=== PATIENT | female | born 1980 | race American Indian/Alaskan Native ===

== ENCOUNTER 2021-09-28 06:09 | Emergency (ER) | payer SELFPAY ==
[2021-09-28] MEDS ORDERED: SODIUM CHLORIDE 0.9% 1000 ML 1,000 ML IV ONE (06:58)
[2021-09-28 07:40] LABS: Bilirubin,Urine NEG (Negative); Blood,Urine LG (Negative); Color,Urine Yellow (Yellow); Protein,Urine <15 mg/dL mg/dL (Negative); Urobilinogen,Urine < 2.0 mg/dL (<2.0)
[2021-09-28 07:43] LABS: RBC,Urine < 1.0 /HPF (0.0-6.0); WBC,Urine < 1.0 /HPF (0.0-6.0)
[2021-09-28 07:49] LABS: Amorphous Crystals,Urine Few
[2021-09-28 08:19] LABS: Basophils % (Auto) 0.9 % (0.0-1.8); Eosinophils # (Auto) 0.1 K/mm3 (0.0-0.4); Eosinophils % (Auto) 1.2 % (0.0-4.3); Hemoglobin 12.5 gm/dl (10.1-14.3); Lymphocytes # (Auto) 1.5 K/mm3 (1.2-5.4); Lymphocytes % (Auto) 27.1 % (13.4-35.0); Mean Corpuscular HGB Conc 35 % (30-34); Mean Corpuscular Volume 83 fl (79-97); Monocytes # (Auto) 0.3 K/mm3 (0.0-0.8); Monocytes % (Auto) 5.1 % (0.0-7.3); Platelet Count 167 K/mm3 (140-440); Red Blood Count 4.32 M/mm3 (3.65-5.03); Red Cell Distribution Width 14.2 % (13.2-15.2)
[2021-09-28 08:35] LABS: Alanine Aminotransferase 19 units/L (7-56); Albumin 4.8 g/dL (3.9-5); Blood Urea Nitrogen 9 mg/dL (7-17); Calcium 9.5 mg/dL (8.4-10.2); Hemolysis Index 125
[2021-09-28 08:36] LABS: BUN/Creatinine Ratio 15
--- NOTE | 2021-09-28 08:42 | Ultrasound Report ---
ULTRASOUND PELVIS INDICATION: . TECHNIQUE: Transabdominal and Transvaginal. Duplex Color Doppler used: Yes. COMPARISON: None available FINDINGS: Uterus: Present. Size: 8.6 x 6.3 x 7.3 cm. Endometrial complex: Normal measuring 0.8 cm. Mass lesions: None. Additional findings: None. Right Ovary -- 3.9 x 1.5 x 2.1 CM. Blood flow: Normal. Cyst or mass: 1.6 cm cyst. Left Ovary-- Normal. Blood flow: Normal. Cyst or mass: None. Urinary Bladder: Normal. Free Fluid: None. Additional Findings: Indeterminate lesion at the right adnexa measuring 3.2 x 2.0 x 2.1 cm. This is n ot well evaluated. No visualized gestational sac, pole or yolk sac. IMPRESSION: 1. Negative for intrauterine . 2. Indeterminate complex lesion right adnexa. This could represent ectopic [facility]. Signer Name: Reymundo Moe MD Signed: 09/28/2021 8:37 AM Workstation Name: [email or web address]
--- NOTE | 2021-09-28 08:42 | Ultrasound Report ---
ULTRASOUND PELVIS INDICATION: . TECHNIQUE: Transabdominal and Transvaginal. Duplex Color Doppler used: Yes. COMPARISON: None available FINDINGS: Uterus: Present. Size: 8.6 x 6.3 x 7.3 cm. Endometrial complex: Normal measuring 0.8 cm. Mass lesions: None. Additional findings: None. Right Ovary -- 3.9 x 1.5 x 2.1 CM. Blood flow: Normal. Cyst or mass: 1.6 cm cyst. Left Ovary-- Normal. Blood flow: Normal. Cyst or mass: None. Urinary Bladder: Normal. Free Fluid: None. Additional Findings: Indeterminate lesion at the right adnexa measuring 3.2 x 2.0 x 2.1 cm. This is n ot well evaluated. No visualized gestational sac, pole or yolk sac. IMPRESSION: 1. Negative for intrauterine . 2. Indeterminate complex lesion right adnexa. This could represent ectopic [facility]. Signer Name: Reymundo Moe MD Signed: 09/28/2021 8:37 AM Workstation Name: [email or web address]
--- NOTE | 2021-09-28 09:02 | Emergency Department Report ---
ED HPI - General Chief complaint: Abdominal Pain Stated complaint: ABD PAIN Source: patient Mode of arrival: Ambulatory Limitations: No Limitations - History of Present Illness Initial comments: 40 female 3 G2 A0 present to Ed for abdominal pain x2 weeks . Patient states she started having vaginal bleeding x1day. Patient stated abdominal pain is 9/10. Patient states last menstrual cycle was July 28. Patient states she is current followed by [facility]. She states she is 7 weeks . Denies any past medical history. Denies any fever chills nausea vomiting at present time. Patient is alert and oriented x3. No acute distress noted. No ill appearance noted. MD Complaint: abdominal pain, vaginal bleeding - Related Data Allergies Allergy/AdvReac Type Severity Reaction Status Date / Time No Known Allergies Allergy Verified 09/28/21 06:57 ED Review of Systems ROS: Stated complaint: ABD PAIN Other details as noted in HPI ED Past Medical Hx - Past Medical History Previous Medical History?: No - Surgical History Past Surgical History?: Yes Additional Surgical History: C SECTION X1 - Social History Smoking Status: Never Smoker Substance Use Type: None ED Physical Exam - General Limitations: No Limitations ED Course Vital Signs 09/28/21 09/28/21 09/28/21 06:54 09:04 11:41 Temperature 98.1 F 98.3 F Pulse Rate 51 L 49 L Respiratory 18 16 Rate Blood Pressure 116/72 116/69 [Left] O2 Sat by Pulse 100 100 98 Oximetry ED Medical Decision Making - Lab Data Result diagrams: 09/28/21 07:50 09/28/21 07:50 - EKG Data Rate: bradycardia - Radiology Data [facility] [address] [place] [address] Ultrasound Report Signed Patient: ABRAM GLOVER MR#: [id number] : 1980 Acct:[id number] Age/Sex: 40 / F ADM Date: 09/28/21 Loc: ED Attending Dr: Ordering Physician: CARLIN NERI NP Date of Service: 09/28/21 Procedure(s): US OB transvaginal Accession Number(s): [id number] cc: CARLIN NERI NP ULTRASOUND PELVIS INDICATION: . TECHNIQUE: Transabdominal and Transvaginal. Duplex Color Doppler used: Yes. COMPARISON: None available FINDINGS: Uterus: Present. Size: 8.6 x 6.3 x 7.3 cm. Endometrial complex: Normal measuring 0.8 cm. Mass lesions: None. Additional findings: None. Right Ovary -- 3.9 x 1.5 x 2.1 CM. Blood flow: Normal. Cyst or mass: 1.6 cm cyst. Left Ovary-- Normal. Blood flow: Normal. Cyst or mass: None. Urinary Bladder: Normal. Free Fluid: None. Additional Findings: Indeterminate lesion at the right adnexa measuring 3.2 x 2.0 x 2.1 cm. This is not well evaluated. No visualized gestational sac, pole or yolk sac. IMPRESSION: 1. Negative for intrauterine . 2. Indeterminate complex lesion right adnexa. This could represent ectopic in the appropriate clinical setting. Signer Name: Reymundo Moe MD Signed: 09/28/2021 8:37 AM Workstation Name: [email or web address] Transcribed By: ES Dictated By: Reymundo Moe MD Electronically Authenticated By: Reymundo Moe MD Signed Date/Time: 09/28/2137 DD/ TD/TT: Print Cancel - Medical Decision Making 33-year-old female presents to the ED via EMS with vaginal bleeding and abd pain x1 day . Patient is 6 para 2 A3. Patient states that abdominal pain is a current 5 out of 10. Patient states that vaginal bleeding is mostly when she is wipe. Patient denies any nausea or vomiting or fever at present time . Patient states that she is currently followed by [place]. Patient is alert and oriented x3. No acute distress noted. No ill appearance noted Physical examination is unremarkable. Consulted with Dr. Reymundo MD. Patient has an indeterminant at present time .Patient wished to keep . Patient is to follow-up will [facility] within 24-48 hours to have hCG level redrawn. Patient is sinus bradycardia at [address] segment dis cussed with Dr. Saxena prior to discharge . Rechecked the patient is resting quietly quietly and comfortable and feeling better. I discussed the results of diagnostic study, my clinical impression and the plan for further treatment with the patient. Patient agrees with plan and discharge at this present time. All question addressed. I have given the patient instruction regarding a diagnosis ,expectation ,follow- up and return precaution. I explained to the patient that emergent condition may arise and to return to the ED for new worsen and any new persisting condition. I have explained the importance of following up with the primary care physician or referral physician listed below has instructed. The patient verbalized understanding of discharge instruction. Critical care attestation.: If time is entered above; I have spent that time in minutes in the direct care of this critically ill patient, excluding procedure time. ED Disposition Clinical Impression: Bleeding in early Disposition: 01 HOME / SELF CARE / HOMELESS Is pt being admited?: No Does the pt Need Aspirin: No Condition: Stable Instructions: Vaginal Bleeding During , First Trimester, Abdominal Pain (ED) Additional Instructions: Have hCG level drawn in 48 hours Return to ED for any worsening symptom Referrals: YENI WELSH MD [Staff Physician] - 3-5 Days [facility] [Provider Group] - 3-5 Days Forms: Work/School Release Form(ED) Time of Disposition: 11:27
[2021-09-28 09:05] VITALS: BP 116/69
[2021-09-28] MEDS ORDERED: fentaNYL 100 MCG/2 ML INJ IV ONE (09:41)
--- NOTE | 2021-09-29 10:20 | Electrocardiograph Report ---
[facility] Test Date: 2021-09-28 Test Time: 11:10:01 Pat Name: ABRAM GLOVER Department: Room: Gender: F Stop Attacher: APURVA : 1980 Requested By: AV BO Order Number: [id number] Reading MD: Chema Irvin Measurements Intervals [place] Rate: 49 P: 55 LA: 178 QRS: 19 QRSD: 78 T: 17 QT: 412 QTc: 372 Interpretive Statements Sinus bradycardia No previous ECG available for comparison Electronically Signed On 09-29-2021 10:20:28 EDT by Chema Irvin
== END 2021-09-28 18:28 | disposition home or self-care (01) ==
LOC: ED 06:09
DX: O20.9 Hemorrhage in early pregnancy, unspecified (principal); Z3A.01 Less than 8 weeks gestation of pregnancy; Z98.890 Other specified postprocedural states
CPT/HCPCS: 36415; 76801; 76817; 80053; 81001; 84702; 85025; 93005; 96360; 99284; J3010; J7030

== ENCOUNTER 2021-09-30 07:34 | Emergency (ER) | payer SELFPAY ==
[2021-09-30 07:59] VITALS: BP 129/71
--- NOTE | 2021-09-30 11:45 | Emergency Department Report ---
ED Recheck HPI - General Chief Complaint: Recheck/Abnormal Lab/Rx Stated Complaint: HCG LEVEL Source: patient Mode of arrival: Ambulatory Limitations: No Limitations - History of Present Illness Initial Comments: 40-year-old female presents to the ED to have a hCG quant redrawn and transvaginal ultrasound. Patient is a 3 para 2 A0. She presents today with no complaints. Denies any vaginal bleeding or vaginal or abdominal pain at present time. Patient was prior evaluated on September. Patient was told to follow-up with her [facility]TAIN/[facility] AIRMAN but instead came back to the ED. patient is alert and oriented x3. No acute distress noted. No ill appearance noted. - Related Data Allergies Allergy/AdvReac Type Severity Reaction Status Date / Time No Known Allergies Allergy Verified 09/28/21 06:57 ED Review of Systems ROS: Stated complaint: HCG LEVEL Other details as noted in HPI Constitutional: denies: chills, fever Eyes: denies: eye pain, eye discharge, vision change ENT: denies: ear pain, throat pain Respiratory: denies: cough, shortness of breath, wheezing Cardiovascular: denies: chest pain, palpitations Endocrine: no symptoms reported Gastrointestinal: denies: abdominal pain, nausea, diarrhea Genitourinary: denies: urgency, dysuria, discharge Musculoskeletal: denies: back pain, joint swelling, arthralgia Skin: denies: rash, lesions Neurological: denies: headache, weakness, paresthesias Psychiatric: denies: anxiety, depression Hematological/Lymphatic: denies: easy bleeding, easy bruising ED Past Medical Hx - Surgical History Additional Surgical History: C SECTION X1 - Social History Smoking Status: Never Smoker Substance Use Type: None ED Physical Exam - General Limitations: No Limitations General appearance: alert, in no apparent distress - Head Head exam: Present: atraumatic, normocephalic - Eye Eye exam: Present: normal appearance - ENT ENT exam: Present: mucous membranes moist - Neck Neck exam: Present: normal inspection - Respiratory Respiratory exam: Present: normal lung sounds bilaterally. Absent: respiratory distress - Cardiovascular Cardiovascular Exam: Present: regular rate, normal rhythm. Absent: systolic murmur, diastolic murmur, rubs, gallop - GI/Abdominal GI/Abdominal exam: Present: soft, normal bowel sounds - Extremities Exam Extremities exam: Present: normal inspection - Back Exam Back exam: Present: normal inspection - Neurological Exam Neurological exam: Present: alert, oriented X3 - Psychiatric Psychiatric exam: Present: normal affect, normal mood - Skin Skin exam: Present: warm, dry, intact, normal color. Absent: rash ED Course Vital Signs 09/30/21 07:56 Temperature 98.3 F Pulse Rate 61 Respiratory 16 Rate Blood Pressure 129/71 [Left] O2 Sat by Pulse 99 Oximetry ED Recheck MDM - Medical Decision Making 40-year-old female presents to the ED to have a hCG quant redrawn and transvaginal ultrasound. Patient is a 3 para 2 A0. She presents today with no complaints. Denies any vaginal bleeding or vaginal or abdominal pain at present time. Patient was prior evaluated on September. Patient was told to follow-up with her [facility] but instead came back to the ED. patient is alert and oriented x3. No acute distress noted. No ill appearance noted. Spoke with [facility], was informed that patient was last evaluated on April to . Patient had ultrasound performed and no changes noted from ultrasound today. Advised by practitioner to clinic to repeat ultrasound and patient is scheduled to follow-up on September at 2:30 PM. Patient hCG today is 312.9 and no significant change to ultrasound report. Rechecked the patient is resting quietly quietly and comfortable and feeling better. I discussed the results of diagnostic study, my clinical impression and the plan for further treatment with the patient. Patient agrees with plan and discharge at this present time. All question addressed. I have given the patient instruction regarding a diagnosis ,expectation ,follow- up and return precaution. I explained to the patient that emergent condition may arise and to return to the ED for new worsen and any new persisting condition. I have explained the importance of following up with the primary care physician or referral physician listed below has instructed. The patient verbalized understanding of discharge instruction. Abnormal Lab Results 09/30/21 08:03 HCG, Quant 312.9 [facility] [address] [place] [address] Ultrasound Report Signed Patient: ABRAM GLOVER MR#: [id number] : 1980 Acct:[id number] Age/Sex: 40 / F ADM Date: 09/30/21 Loc: ED Attending Dr: Ordering Physician: LAVERNE ROGERS Date of Service: 09/30/21 Procedure(s): US OB transvaginal Accession Number(s): [id number] cc: LAVERNE ROGERS ULTRASOUND PELVIS INDICATION: vaginal bleeding. TECHNIQUE: Transabdominal and Transvaginal. Duplex Color Doppler used: Yes. COMPARISON: 09/28/2021. FINDINGS: Uterus: Present. Size: 10.5 x 5.3 x 4.4 cm. Endometrial complex: Normal measuring 4 cm. Mass lesions: None. Additional findings: None. Right Ovary -- 5.8 x 3.3 x 3.8 Blood flow: Normal. Cyst or mass: Complex cystic lesion measuring 3.5 x 1.8 cm. A complex cystic lesion was seen in this region previously measuring 3.2 x 2 cm. The location/orientation appears slightly different Left Ovary-- 2.7 x 2.1 x 2.7. Blood flow: Normal. Cyst or mass: None. Urinary Bladder: Normal. Free Fluid: Mild, complex fluid right adnexa. Additional Findings: None. IMPRESSION: 1. No intrauterine . 2. Complex lesion right adnexa remains. The orientation appears slightly different. The size is stable. Mild adjacent complex fluid is seen. No yolk sac or pole identified. Signer Name: Reymundo Moe MD Signed: 09/30/2021 1:35 PM Workstation Name: [id number] Transcribed By: Dictated By: Reymundo Moe MD Electronically Authenticated By: Reymundo Moe MD Signed Date/Time: 09/30/21 1335 DD/ 1329 TD/TT: Critical care attestation.: If time is entered above; I have spent that time in minutes in the direct care of this critically ill patient, excluding procedure time. ED Disposition Clinical Impression: Early stage of Disposition: 01 HOME / SELF CARE / HOMELESS Is pt being admited?: No Does the pt Need Aspirin: No Condition: Stable Instructions: First Trimester of , [id number] Additional Instructions: Keep appointment with [facility] for October 04 at 10 PM Return the ED for any worsening symptoms hCG quant is 312 Referrals: PRIMARY CAREMD [Primary Care Provider] - 3-5 Days [facility] [Provider Group] - 3-5 Days Forms: Work/School Release Form(ED)
--- NOTE | 2021-09-30 13:39 | Ultrasound Report ---
ULTRASOUND PELVIS INDICATION: vaginal bleeding. TECHNIQUE: Transabdominal and Transvaginal. Duplex Color Doppler used: Yes. COMPARISON: 09/28/2021. FINDINGS: Uterus: Present. Size: 10.5 x 5.3 x 4.4 cm. Endometrial complex: Normal measuring 4 cm. Mass lesions: None. Additional findings: None. Right Ovary -- 5.8 x 3.3 x 3.8 Blood flow: Normal. Cyst or mass: Complex cystic lesion measuring 3.5 x 1.8 cm. A complex cystic lesion was seen in this region previously measuring 3.2 x 2 cm. The location/orientation appears slightly different Left Ovary-- 2.7 x 2.1 x 2.7. Blood flow: Normal. Cyst or mass: None. Urinary Bladder: Normal. Free Fluid: Mild, complex fluid right adnexa. Additional Findings: None. IMPRESSION: 1. No intrauterine . 2. Complex lesion right adnexa remains. The orientation appears slightly different. The size is stabl e. Mild adjacent complex fluid is seen. No yolk sac or pole identified. Signer Name: Reymundo Moe MD Signed: 09/30/2021 1:35 PM Workstation Name: [email or web address]
== END 2021-09-30 14:05 | disposition home or self-care (01) ==
LOC: ED 07:34
DX: Z34.91 Encounter for supervision of normal pregnancy, unspecified, first trimester (principal)
CPT/HCPCS: 36415; 76801; 76817; 84702; 99284

== ENCOUNTER 2021-10-07 06:49 | Emergency (ER) | payer SELFPAY ==
--- NOTE | 2021-10-07 12:11 | Emergency Department Report ---
ED Recheck HPI - General Chief Complaint: Recheck/Abnormal Lab/Rx Stated Complaint: ABD PAIN/ECTOPIC Time Seen by Provider: 10/07/21 11:41 Source: patient Mode of arrival: Ambulatory Limitations: No Limitations - History of Present Illness Initial Comments: 40-year-old black female with no past medical history presents to the emergency department for administration of methotrexate. She was seen here initially on 09/28 for vaginal bleeding and was found to have an elevated hCG level in the 400s but no IUP on ultrasound. Per the provider's note, after consultation from [facility], patient was advised to follow-up in 2 to 3 days for repeat levels and ultrasound. She was seen here again on 09/30 and found to have hCG level in the 300s and no change on ultrasound. Per the provider's note, after consultation with [facility] WA[facility]/WAITRESS, patient was advised to follow-up on 10/04 and CLUB WAITER/WAITRESS's office. Patient was seen at [facility] on 10/[address] Isa North and after hCG level, was advised to follow-up in the emergency department for IM dose of methotrexate. Patient presents today with a prescription from Dr. North for methotrexate. Patient denies abdominal pain, nausea, vomiting, fever, dysuria, and vaginal bleeding. MD Complaint: other (Methotrexate administration.) Returns Today for: other (Methotrexate administration) Symptoms Since Prior Visit: no new symptoms Associated Symptoms: denies: fever, chills, chest pain, shortness of breath, nasuea, abdominal pain - Related Data Allergies Allergy/AdvReac Type Severity Reaction Status Date / Time No Known Allergies Allergy Verified 09/28/21 06:57 ED Review of Systems ROS: Stated complaint: ABD PAIN/ECTOPIC Other details as noted in HPI Comment: All other systems reviewed and negative Constitutional: denies: chills, fever ENT: denies: congestion Respiratory: denies: shortness of breath Cardiovascular: denies: chest pain, palpitations, dyspnea on exertion, orthopnea, edema, syncope, paroxysmal nocturnal dyspnea Gastrointestinal: denies: abdominal pain, nausea, vomiting, diarrhea, hematemesi s, melena, hematochezia Genitourinary: denies: urgency, dysuria Musculoskeletal: denies: back pain Neurological: denies: headache, weakness ED Past Medical Hx - Surgical History Additional Surgical History: C SECTION X1 - Social History Smoking Status: Never Smoker Substance Use Type: None ED Physical Exam - General Limitations: No Limitations General appearance: alert, in no apparent distress - Head Head exam: Present: atraumatic, normocephalic - Eye Eye exam: Present: normal appearance. Absent: conjunctival injection - Neck Neck exam: Present: normal inspection. Absent: tenderness, lymphadenopathy - Respiratory Respiratory exam: Present: normal lung sounds bilaterally. Absent: respiratory distress, wheezes, rales, rhonchi, stridor, chest wall tenderness - Cardiovascular Cardiovascular Exam: Present: regular rate, normal heart sounds - GI/Abdominal GI/Abdominal exam: Present: soft, normal bowel sounds. Absent: distended, tenderness, guarding, rebound, rigid - Extremities Exam Extremities exam: Present: normal inspection, normal capillary refill. Absent: pedal edema, joint swelling, calf tenderness - Back Exam Back exam: Present: normal inspection. Absent: CVA tenderness (R), CVA tenderness (L), vertebral tenderness - Neurological Exam Neurological exam: Present: alert, oriented X3, normal gait - Psychiatric Psychiatric exam: Present: normal affect, normal mood - Skin Skin exam: Present: warm, dry, intact, normal color ED Course Vital Signs 10/07/21 10/07/21 07:42 10:57 Temperature 98.2 F 98.7 F Pulse Rate 62 60 Respiratory 16 14 Rate Blood Pressure 117/61 124/82 [Left] O2 Sat by Pulse 99 100 Oximetry ED Recheck MDM - Medical Decision Making 40-year-old black female with no past medical history presents to the emergency department for administration of methotrexate. She was seen here initially on 09/28 for vaginal bleeding and was found to have an elevated hCG level in the 400s but no IUP on ultrasound. Per the provider's note, after consultation from [facility], patient was advised to follow-up in 2 to 3 days for repeat levels and ultrasound. She was seen here again on 09/30 and found to have hCG level in the 300s and no change on ultrasound. Per the provider's note, after consultation with [facility]WAITRESS, patient was advised to follow-up on 10/04 and [facility]UB WA[facility]/WAITRESS's office. Patient was seen at [facility] on 10/[address] Isa North and after hCG level, was advised to follow-up in the emergency department for IM dose of methotrexate. Patient presents today with a prescription from Dr. North for methotrexate. Patient denies abdominal pain, nausea, vomiting, fever, dysuria, and vaginal bleeding. Physical exam unremarkable. Call placed to [facility] to verify plan of care for patient. Patient already scheduled to follow-up with Dr. North on Sunday then or Sunday for repeat hCG levels. Patient was administered methotrexate 50 mg in the emergency department and advised to follow-up with Dr. North as planned. She was advised to return to the emergency department if she develops severe abdominal pain, fever, weakness, dizziness, or any concerning symptoms. She verbalized understanding of and agreement with plan of care. Critical care attestation.: If time is entered above; I have spent that time in minutes in the direct care of this critically ill patient, excluding procedure time. ED Disposition Clinical Impression: Medication administered Disposition: HOME / SELF CARE / HOMELESS Is pt being admited?: No Does the pt Need Aspirin: No Condition: Stable Instructions: Methotrexate Treatment for an Ectopic , Care After, Methotrexate Treatment for an Ectopic Additional Instructions: Follow-up with Dr. North at [facility] on Sunday to have blood levels redrawn. Return to the emergency department immediately if you develop severe abdominal pain, fever, dizziness, or weakness. Referrals: ISA NORTH MD [Staff Physician] - 3-5 Days SELAM MISHRA MD [Staff Physician] - 3-5 Days Time of Disposition: 12:13
[2021-10-07 14:40] VITALS: BP 116/80
== END 2021-10-07 14:41 | disposition home or self-care (01) ==
LOC: ED 06:49
DX: O00.90 Unspecified ectopic pregnancy without intrauterine pregnancy (principal); Z76.0 Encounter for issue of repeat prescription
CPT/HCPCS: 96372; 99282; J9260

== ENCOUNTER 2021-10-09 20:06 | Emergency (ER) | payer SELFPAY ==
[2021-10-09 23:08] LABS: Bilirubin,Urine NEG (Negative); Blood,Urine NEG (Negative); Color,Urine Straw (Yellow); Protein,Urine <15 mg/dL mg/dL (Negative); Urobilinogen,Urine < 2.0 mg/dL (<2.0)
[2021-10-09 23:10] LABS: Bacteria,Urine 1+ /HPF (Negative)
--- NOTE | 2021-10-10 00:27 | Emergency Department Report ---
ED Abdominal Pain HPI - General Chief Complaint: Abdominal Pain Stated Complaint: ABD PAIN AFTER TAKING METHOTREXATE Time Seen by Provider: 10/10/21 00:15 Source: patient Mode of arrival: Ambulatory Limitations: No Limitations - History of Present Illness Initial Comments: 40-year-old female vaginal ectopic seen here 2 days ago started treatment presents emerged department complaining dysuria 64 reports no nausea chest pain or shortness of breath has been experiencing occasional pelvic methotrexate to assist with MD Complaint: abdominal pain -: Gradual Location: suprapubic Radiation: suprapubic Migration to: suprapubic Severity: moderate Quality: cramping - Related Data Allergies Allergy/AdvReac Type Severity Reaction Status Date / Time No Known Allergies Allergy Verified 09/28/21 06:57 ED Review of Systems ROS: Stated complaint: ABD PAIN AFTER TAKING METHOTREXATE Other details as noted in HPI Comment: All other systems reviewed and negative ED Past Medical Hx - Past Medical History Previous Medical History?: No - Surgical History Past Surgical History?: Yes Additional Surgical History: C SECTION X1 - Social History Smoking Status: Never Smoker Substance Use Type: None ED Physical Exam - General Limitations: No Limitations General appearance: alert, in no apparent distress - Head Head exam: Present: atraumatic, normocephalic - Eye Eye exam: Present: normal appearance - ENT ENT exam: Present: mucous membranes moist - Neck Neck exam: Present: normal inspection - Respiratory Respiratory exam: Present: normal lung sounds bilaterally. Absent: respiratory distress - Cardiovascular Cardiovascular Exam: Present: regular rate, normal rhythm. Absent: systolic murmur, diastolic murmur, rubs, gallop - GI/Abdominal GI/Abdominal exam: Present: soft, tenderness (Suprapubic palpation. No CVA tenderness noted is appreciated.), normal bowel sounds - Extremities Exam Extremities exam: Present: normal inspection - Back Exam Back exam: Present: normal inspection - Neurological Exam Neurological exam: Present: alert, oriented X3 - Psychiatric Psychiatric exam: Present: normal affect, normal mood - Skin Skin exam: Present: warm, dry, intact, normal color. Absent: rash Critical care attestation.: If time is entered above; I have spent that time in minutes in the direct care of this critically ill patient, excluding procedure time. ED Disposition Clinical Impression: Dysuria Disposition: 01 HOME / SELF CARE / HOMELESS Is pt being admited?: No Does the pt Need Aspirin: No Condition: Stable Instructions: Dysuria, Abdominal Pain (ED) Additional Instructions: You have been evaluated emergency department today for abdominal pain. Your evaluation did not show evidence of any medical conditions requiring emergent intervention at this time. Your urinalysis was normal at this present please drink plenty of fluids. Be sure to maintain appointment with your [facility] for further evaluation and treatment options to assist you with management of this ectopic Please schedule an appointment with your primary care physician. Return to emergency department if you experience worsening uncontrolled pain, fevers of 100.4 or greater, recurrent vomiting, inability to tolerate food or fluids by mouth, bloody stools or vomit, black tarry stools, or any other concerning symptoms. Referrals: PRIMARY CARE, [Referring] - 3-5 Days
[2021-10-10 01:58] VITALS: BP 139/73
== END 2021-10-10 01:58 | disposition home or self-care (01) ==
LOC: ED 20:06
DX: R30.0 Dysuria (principal); Z98.890 Other specified postprocedural states
CPT/HCPCS: 81001; 99283